=== PATIENT | male | born 1955 | race African-American/Black ===

== ENCOUNTER → 2018-06-15 | Emergency (ER) | payer OTHER ==
[~2018-06-15] VITALS: Ht 175.3 cm; Wt 83.9 kg
[~2018-06-15] MED LIST: IBUPROFEN600 MG ORAL; NKM; UNOBMED
--- NOTE | 2018-06-15 21:15 | Emergency Room Report ---
History of Present Illness General Chief Complaint: Diarrhea Source: Patient, Medical Record Present Illness HPI This is 63-year-old male with history of high blood pressure. He presents with chief complaint abdominal cramping diarrhea. He said he ate something at [employer] around noon and shortly afterward, he had profuse watery diarrhea. No blood. No vomiting. No nausea no vomiting. Pain is crampy in nature. 5 out of 10. Denies any other complaint. Nothing made it better. Nothing made it worse. Allergies: Coded Allergies: No Known Allergies (Unverified , 06/15/18) Patient History Past Medical History: see triage record, old chart reviewed, HTN Past Surgical History: other Pertinent Family History: none Social History: Denies: drug use - History of cocaine abuse. 2 years clean. Immunizations: other Reviewed Nursing Documentation: PMH: Agreed; PSxH: Agreed Nursing Documentation-PMH Past Medical History: No History, Except For Hx Cardiac Problems: Yes Hx Hypertension: Yes Hx Asthma: Yes Review of Systems Eye: Denies: eye pain, blurred vision ENT: Denies: ear pain, nose congestion, throat swelling Respiratory: Denies: cough, shortness of breath Cardiovascular: Denies: chest pain, palpitations Gastrointestinal: Reports: abdominal pain, diarrhea; Denies: nausea, vomiting Musculoskeletal: Denies: back pain, joint pain Skin: Denies: rash Neurological: Denies: headache, numbness Endocrine: Denies: increased thirst, increased urine Hematologic/Lymphatic: Denies: easy bruising All Other Systems: negative except mentioned in HPI Physical Exam Vital Signs Date Time Temp Pulse Resp B/P (MAP) Pulse Ox O2 Delivery O2 Flow Rate FiO2 06/15/18 21:00 98.0 66 17 147/79 96 Room Air 98.1 vitals with high blood pressure Sp02 EP Interpretation: reviewed, normal General Appearance: well appearing, no apparent distress, alert Head: normocephalic, atraumatic Eyes: bilateral eye PERRL, bilateral eye EOMI ENT: hearing grossly normal, normal pharynx Neck: full range of motion, supple, no meningismus Respiratory: chest non-tender, lungs clear, normal breath sounds Cardiovascular #1: regular rate, rhythm, no murmur Gastrointestinal: normal bowel sounds, non tender, no mass, no organomegaly, no bruit, non-distended Musculoskeletal: back normal, gait/station normal, normal range of motion Psychiatric: mood/affect normal Skin: warm/dry Medical Decision Making Diagnostic Impression: Primary Impression: Diarrhea Qualified Codes: R19.7 - Diarrhea, unspecified ER Course Patient with diarrhea. This could be secondary to food poisoning versus enteritis. No recent travel, camping, antibiotics or ill contact. We'll treat symptomatically. No need for antibiotics or antidiarrhea medicine right now. Last Vital Signs Date Time Temp Pulse Resp B/P (MAP) Pulse Ox O2 Delivery O2 Flow Rate FiO2 06/15/18 21:00 98.0 66 17 147/79 96 Room Air 98.1 Status: unchanged Disposition: HOME, SELF-CARE Condition: Stable Scripts Ibuprofen* (MOTRIN*) 600 Mg Tablet 600 MG ORAL THREE TIMES A DAY, #30 TAB 0 Refills Prov: Kenyon Flores MD 06/15/18 Patient Instructions: Diarrhea, Adult Additional Instructions: Increase fluids. Avoid dairy products. Follow-up your doctor in 7 days if not better. Return if worse. Kenyon Flores MD Jun 15, 2018 21:15
[2018-06-15 21:36] VITALS: BP 147/79
== END | disposition home or self-care (01) ==
LOC: EMR 23:40
DX: R19.7 Diarrhea, unspecified (principal); I10 Essential (primary) hypertension
CPT/HCPCS: 99282

== ENCOUNTER 2018-12-15 16:03 | Emergency (ER) | payer OTHER ==
[~2018-12-15] VITALS: Ht 175.3 cm; Wt 81.6 kg
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
[2018-12-15 16:25] VITALS: BP 162/84
--- NOTE | 2018-12-15 16:44 | NUR ---
ED Nurse Note: XRAY AT BEDSIDE
[2018-12-15] MEDS ORDERED: Methocarbamol 500mg tab ORAL ONE (16:45)
[2018-12-15] MEDS ORDERED: Ketorolac 30mg Inj IM ONE (16:45)
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
--- NOTE | 2018-12-15 16:50 | NUR ---
ED Nurse Note: PT TO CT VIA WHEELCHAIR.
--- NOTE | 2018-12-15 17:01 | Diagnostic Imaging Report ---
EXAM: XR Left Knee, 3 views CLINICAL HISTORY: PAIN TECHNIQUE: Three views of the left knee. COMPARISON: No relevant prior studies available. FINDINGS: Bones/joints: No acute fracture. Soft tissues: No radiodense foreign body. IMPRESSION: No acute fracture.
--- NOTE | 2018-12-15 17:06 | NUR ---
ED Nurse Note: PT BACK FROM CT VIA WHEELCHAIR.
--- NOTE | 2018-12-15 17:36 | Diagnostic Imaging Report ---
EXAM: CT Cervical Spine Without Intravenous Contrast CLINICAL HISTORY: PAIN TECHNIQUE: Axial computed tomography images of the cervical spine without intravenous contrast. CTDI is 19.53 mGy and DLP is 448 mGy-cm. One or more of the following dose reduction techniques were used: automated exposure control, adjustment of the mA and/or kV according to patient size, use of iterative reconstruction technique. COMPARISON: No relevant prior studies available. FINDINGS: Vertebrae: No acute fracture or malalignment. Ossification of the posterior longitudinal ligament, acquired and congenital spinal stenosis. Cervical spondylosis. Discs/spinal canal/neural foramina: Ossification of the posterior longitudinal ligament, acquired and congenital spinal stenosis. Associated central canal and foraminal stenoses Cervical spondylosis. Soft tissues: Unremarkable. IMPRESSION: No acute fracture or malalignment.
--- NOTE | 2018-12-15 18:14 | Diagnostic Imaging Report ---
EXAM: CT Head Without Intravenous Contrast CLINICAL HISTORY: PAIN TECHNIQUE: Axial computed tomography images of the head/brain without intravenous contrast. CTDI is 70.38 mGy and DLP is 1400 mGy-cm. One or more of the following dose reduction techniques were used: automated exposure control, adjustment of the mA and/or kV according to patient size, use of iterative reconstruction technique. COMPARISON: No relevant prior studies available. FINDINGS: Brain: No hemorrhage. No edema. Ventricles: No ventriculomegaly. Bones/joints: No acute fracture. Soft tissues: Unremarkable. Sinuses: No acute sinusitis. Mastoid air cells: No mastoid effusion. IMPRESSION: No acute intracranial process.
[2018-12-15 18:28] VITALS: BP 152/76
--- NOTE | 2018-12-15 18:28 | NUR ---
ED Nurse Note: PT SITTING PEACEFULLY IN BED IN NAD. AOX4. PRESCRIPTIONS AND DISCHARGE PAPERWORK EXPLAINED TO PT. PT VERBALIZES UNDERSTANDING AND ALL QUESTIONS ANSWERED. PRESCRIPTIONS AND DISCHARGE PAPERWORK GIVEN TO PT AND ID WRISTBAND REMOVED. PT WALKED OUT OF ER WITH STEADY GAIT AND ALL BELONGINGS.
[2018-12-15] MEDS ORDERED: LIDOCAINE700 M1 TP (18:35)
[2018-12-15] MEDS ORDERED: NORCO 5-325 TA1 EACH ORAL (18:35)
[2018-12-15] MEDS ORDERED: ROBAXIN500 MG PO (18:35)
[2018-12-15] MEDS ORDERED: IBUPROFEN600 MG ORAL (18:35)
== END 2018-12-15 18:28 | disposition home or self-care (01) ==
LOC: EMR 18:24
DX: S16.1XXA Strain of muscle, fascia and tendon at neck level, initial encounter (principal); S80.02XA Contusion of left knee, initial encounter; R51 Headache; I10 Essential (primary) hypertension; J45.909 Unspecified asthma, uncomplicated; V43.52XA Car driver injured in collision with other type car in traffic accident, initial encounter; Y92.410 Unspecified street and highway as the place of occurrence of the external cause
CPT/HCPCS: 70450; 72125; 73562; 96372; 99284; J1885

== ENCOUNTER 2019-01-01 18:04 | Emergency (ER) | payer OTHER ==
[~2019-01-01] VITALS: Ht 175.3 cm; Wt 79.4 kg
[~2019-01-01 18:04] MED LIST changes: +LIDOCAINE700 M1 TP; +NORCO 5-325 TA1 EACH ORAL; +ROBAXIN500 MG PO
[2019-01-01] MEDS ORDERED: NKM (18:12)
[2019-01-01 18:17] VITALS: BP 160/80
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
[2019-01-01] MEDS ORDERED: TYLENOL EXTRA500 MG ORAL (18:50)
[2019-01-01] MEDS ORDERED: CEPHALEXIN500 MG ORAL (18:50)
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
[2019-01-01 19:14] VITALS: BP 156/81
--- NOTE | 2019-01-01 19:14 | NUR ---
ER DISCHARGE NOTE: Patient is cleared to be discharged per King. dressing applied to left hand, and splin applied. Pt is aox4 on room air with stable vital signs. Pt was given dc and prescription instructions and was able to verbalize understanding. Pt's ID band removed. pt is able to ambulate with steady gait and took all belongings.
== END 2019-01-01 19:14 | disposition home or self-care (01) ==
LOC: EMR 18:42
DX: S61.412A Laceration without foreign body of left hand, initial encounter (principal); I10 Essential (primary) hypertension; W20.8XXA Other cause of strike by thrown, projected or falling object, initial encounter; Y93.9 Activity, unspecified; Y92.9 Unspecified place or not applicable
CPT/HCPCS: 29130; 99283

== ENCOUNTER 2019-01-07 11:01 | Emergency (ER) | payer OTHER ==
[~2019-01-07] VITALS: Ht 175.3 cm; Wt 83.9 kg
[~2019-01-07 11:01] MED LIST changes: +CEPHALEXIN500 MG ORAL; +TYLENOL EXTRA500 MG ORAL
--- NOTE | 2019-01-07 11:15 | NUR ---
ED Nurse Note: Patient walked into ED c/o left hand cut, patient reports he had this cut last week and today, he hit his left hand on the faucet this morning. patient is alert awake x4 ambulatory. patient received treatment here on 01/01/19
[2019-01-07 11:36] VITALS: BP 172/95
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
[2019-01-07] MEDS ORDERED: Bacitracin Oint UD TOPIC ONE (11:45)
[2019-01-07] MEDS ORDERED: IBUPROFEN600 MG ORAL (11:58)
[2019-01-07] MEDS ORDERED: BACITRACIN15 GM TOPIC (11:58)
[2019-01-07 12:07] VITALS: BP 168/92
--- NOTE | 2019-01-07 12:08 | NUR ---
ER DISCHARGE NOTE: Patient is cleared to be discharged per ERMD, pt is aox4, on room air, with stable vital signs. pt was given dc and prescription instructions, pt was able to verbalize understanding, pt id band removed without complications. pt is able to ambulate with steady gait. pt took all belongings.
== END 2019-01-07 12:10 | disposition home or self-care (01) ==
LOC: EMR 11:30
DX: S61.412A Laceration without foreign body of left hand, initial encounter (principal); X58.XXXA Exposure to other specified factors, initial encounter; Y92.9 Unspecified place or not applicable; I10 Essential (primary) hypertension; F17.200 Nicotine dependence, unspecified, uncomplicated
CPT/HCPCS: 99282